=== PATIENT | female | born 1945 | race Caucasian/White ===

== ENCOUNTER 2024-07-01 06:14 | Day surgery (SDC) | payer MEDICARE, OTHER, SELFPAY ==
[2024-07-01 06:49] VITALS: BMI 22.1
[2024-07-01 06:50] VITALS: BP 120/68; BMI 22.1
[2024-07-01] MEDS: MYDRIACYL 1 DROP OPHTH (06:54)
[2024-07-01] MEDS: ACUVAIL 1 DROPS OPHTH (06:54)
[2024-07-01] MEDS: ALCAINE 0.5% EYE DROPS 1 DROP OPHTH (06:55)
[2024-07-01] MEDS: PRED FORTE 1% EYE DROPS 1 DROP OPHTH (06:55)
[2024-07-01] MEDS: POLYTRIM OPHTHALMIC SOLUTION 1 DROP OPHTH (06:55)
[2024-07-01] MEDS: NEO-SYNEPHRINE 2.5% OPH SOL. 1 DROP OPHTH (06:55)
[2024-07-01] MEDS: AKTEN OPHTHALMIC GEL 1 ML OPHTH (06:55)
[2024-07-01] MEDS: CYCLOGYL 1% EYE DROPS 1 DROP OPHTH (06:55)
[2024-07-01 09:08] VITALS: BP 114/57
[2024-07-01 09:25] VITALS: BP 105/75
== END 2024-07-01 09:40 | disposition home or self-care (01) ==
LOC: SDS 06:14
PROVIDERS: ATTENDING PHYSICIAN Ophthalmology; FAMILY PHYSICIAN Internal Medicine
DX: H25.811 Combined forms of age-related cataract, right eye (principal)
CPT/HCPCS: 66984